=== PATIENT | female | born 2000 | race Asian ===

== ENCOUNTER 2024-11-01 13:51 | Emergency (ER) | payer OTHER, SELFPAY ==
[2024-11-01] VITALS (11 sets, daily range): BP systolic 114–148; BP diastolic 61–85; PULSE 61–78; RESP 16–25; TEMP 36.8; O2SAT 97–99; BMI 34.3
--- NOTE | 2024-11-01 14:13 | DI.RAD.S_ITS ---
PROCEDURE: XR CHEST 1V INDICATIONS: chest pain TECHNIQUE: One view of the chest was acquired. COMPARISON: None. FINDINGS: Surgical changes and devices: None. Lungs and pleura: Lungs are clear. No pleural effusions or pneumothorax. Mediastinum: Mediastinal contours appear normal. Heart size is normal. Bones and chest wall: No suspicious bony lesions. Overlying soft tissues appear unremarkable. IMPRESSION: No acute cardiopulmonary abnormality is seen. Dictated by: Lamberto Camargo M.D. on 11/01/2024 at 15:12 Approved by: Lamberto Camargo M.D. on 11/01/2024 at 15:14
--- NOTE | 2024-11-01 14:13 | EKG_ITS ---
[place] [id number] [place] [id number] Test Date: 2024-11-01 Pat Name: Olivia Cardoso Department: [facility] Room: Gender: Female Sack Filler: JOSE : 2000 Requested By: Order Number: [id number] Reading MD: Elver Jordan MD Measurements Intervals [place] Rate: 62 P: 41 ID: [id number] QRS: 53 QRSD: 86 T: 6 QT: 412 QTc: 418 Interpretive Statements Normal sinus rhythm Electronically Signed On 11-02-2024 6:56:35 PST by Elver Jordan MD
[2024-11-01 14:32] LABS: Add Manual Diff / Slide Review NO; Basophils Absolute Auto 0 /uL (0-100); Basophils Percent Auto 0.8 % (0-2); Eosinophils Absolute Auto 100 /uL (0-450); Eosinophils Percent Auto 1.7 % (2-4); Hematocrit 40.2 % (36-46); Hemoglobin 13.8 g/dL (12.0-16.0); Lymphocytes Absolute Auto 2100 /uL (1100-4500); Mean Corpuscular HGB Conc 34.4 % (30-36); Mean Corpuscular Volume 87.2 fL (80-100); Monocytes Absolute Auto 400 /uL (0-900); Monocytes Percent Auto 7.2 % (3-14); Neutrophils Absolute Auto 3400 /uL (1500-7000); Neutrophils Percent Auto 55.3 % (50-75); Platelet Count 335 X10^3/uL (150-400); Red Blood Cell Count 4.62 X10^6/uL (4.0-5.2); Red Cell Distribution Width 12.9 % (11.6-14.8); White Blood Cell Count 6.1 X10^3/uL (4.5-11.0)
[2024-11-01 14:43] LABS: INR 1.1 (0.9-1.3)
[2024-11-01 14:46] LABS: PTT Partial Thromboplastin Tim 31 SECONDS (25.1-36.5)
[2024-11-01 14:50] LABS: Alanine Aminotransferase 35 IU/L (<35); Albumin 4.8 g/dL (3.5-5.0); Albumin Globulin Ratio 1.8 (1.0-2.8); Alkaline Phosphatase 53 U/L (38-126); Aspartate Aminotransferase 39 IU/L (14-36); BUN Creatinine Ratio 14.7 (6-22); Bilirubin Total 0.3 mg/dL (0.2-1.3); Blood Urea Nitrogen 11 mg/dL (7-17); Calcium 9.4 mg/dL (8.4-10.2); Carbon Dioxide 24 mmol/L (22-32); Chloride 102 mmol/L (98-107); Creatine Kinase 147 U/L (30-135); Estimated Glomerular Filt Rate > 60 mL/min (>60); Globulin 2.7 g/dL (1.7-4.1); Glucose 151 mg/dL (70-100); HEMOLYSIS < 15 (0-50); Lipase 106 U/L (23-300); Magnesium 1.7 mg/dL (1.6-2.3); Potassium 3.9 mmol/L (3.4-5.1); Sodium 137 mmol/L (137-145); Total Protein 7.5 g/dL (6.3-8.2)
[2024-11-01 15:01] LABS: NT-proBNP (BNP-Adult 18+) 35 pg/mL (<125); Troponin I < 0.012 ng/mL (0.01-0.034)
--- NOTE | 2024-11-01 15:57 | PC.NURSE ---
during conversation with this RN about what happened today patient estimated that she has had similar events Less than 6 times in the past 3 months. Patient states that they have been sitting at their desk or laying down in previous episodes. Patient states that it has been happening for several years. Provider notified.
--- NOTE | 2024-11-01 16:19 | ED_ITS ---
HPI - Syncope General Chief Complaint: Syncope Stated Complaint: GLF ,Dizzyness, Blurred Vision Time Seen by Provider: 11/01/24 16:09 History of Present Illness HPI narrative: Patient here for syncopal episode at work. Patient works here. Patient has had 3-5 episodes in the past 5 months, she states mostly at work. She states she has been under lot of stress. She will have visual disturbance in the peripheral santana and her vision will go black and she will pass out for less than 3 seconds. No history of seizures. No incontinence. No confusion afterwards. She states her stress has been related to work. No personal or family history of arrhythmia blood clots in legs or lungs heart attacks or seizures. Patient denies any pre event headache chest pain back pain abdominal pain sweating nausea numbness tingling or weakness. Does get dizzy prior to passing out. Denies any recent illness. No black or bloody stools. No fluid loss. Denies . Related Data Allergies Allergy/AdvReac Type Severity Reaction Status Date / Time No Known Drug Allergies Allergy Verified 11/01/24 14:12 Review of Systems Review of Systems Narrative: GENERAL: Negative chills, fatigue, malaise, fever, sweats. HEENT: Negative sinus pain, ear pain, sore throat RESPIRATORY: Negative dyspnea, cough CARDIOVASCULAR: Negative chest pain, palpitations, positive syncope GASTROINTESTINAL: Negative nausea, vomiting, abdominal pain : Negative dysuria, frequency, hematuria MUSCULOSKELETAL: Negative muscle or bony pain SKIN: Negative rash, skin lesions NEUROLOGIC: Negative weakness, numbness ROS Unobtainable: All systems reviewed & are unremarkable except as noted in HPI and below Exam Narrative Exam Narrative: GENERAL: in no distress, not toxic not dyspneic HEAD: Normocephalic. Atraumatic. Nontender scalp and face. No skin injury. No facial injury. EYES: Pupils equal round ENT: Mucous membranes moist. NECK: Trachea midline. No midline tenderness or step-off of the cervical spine. CARDIOVASCULAR: Regular rate and rhythm RESPIRATORY: Clear to auscultation. Breath sounds equal bilaterally. No wheezes, rales, or rhonchi. GASTROINTESTINAL: Abdomen soft, non-tender EXTREMITIES: No gross deformities. Examination left knee small amount of erythema to the patella but full active range of motion. No bruising at this time. Nontender knee. BACK: No flank tenderness. NEURO: AOx4. Clear speech no facial droop light touch intact bilateral face and hands with strong equal plastics worker. SKIN: Warm and dry PSYCH: Not anxious, is cooperative Initial Vital Signs Initial Vital Signs: Vital Signs Temperature 98.3 F 11/01/24 14:08 Pulse Rate 61 11/01/24 14:08 Respiratory Rate 16 11/01/24 14:08 Blood Pressure 148/85 H 11/01/24 14:08 Pulse Oximetry 99 11/01/24 14:08 Oxygen Delivery Method Room Air 11/01/24 14:08 Course Orders Ordered: ED Orders 11/01/24 14:10 Complete Blood Count AUTO DIFF Stat Comprehensive Metabolic Panel Stat Lipase Stat Magnesium Stat NT-proBNP (BNP-Adult 18+) Stat PTT Partial Thromboplastin Busetr Stat Prothrombin Time INR Stat Troponin & CK Cardiac Panel Stat 11/01/24 14:13 XR chest 1V Stat EKG-12 Lead Stat Vital Signs Vital signs: Vital Signs - 8 hr 11/01/24 14:08 11/01/24 15:17 11/01/24 15:18 Temperature 98.3 F Pulse Rate 61 78 78 Respiratory Rate 16 Blood Pressure 148/85 H Pulse Oximetry 99 98 99 Oxygen Delivery Method Room Air 11/01/24 15:18 11/01/24 15:20 11/01/24 15:20 Temperature Pulse Rate 72 Respiratory Rate 23 Blood Pressure 146/71 H 131/64 Pulse Oximetry 99 Oxygen Delivery Method 11/01/24 15:30 11/01/24 15:30 11/01/24 15:40 Temperature Pulse Rate 67 Respiratory Rate 21 Blood Pressure 143/63 H 131/61 Pulse Oximetry 99 Oxygen Delivery Method 11/01/24 15:40 11/01/24 15:50 11/01/24 15:50 Temperature Pulse Rate 72 68 Respiratory Rate 18 22 Blood Pressure 114/70 Pulse Oximetry 98 98 Oxygen Delivery Method MDM - Syncope Lab Data 11/01/24 14:10 11/01/24 14:10 Labs: Lab Results 11/01/24 Range/Units 14:10 WBC 6.1 (4.5-11.0) X10^3/uL RBC 4.62 (4.0-5.2) X10^6/uL Hgb 13.8 (12.0-16.0) g/dL Hct 40.2 (36-46) % MCV 87.2 (80-100) fL MCH 30.0 (26-34) PG MCHC 34.4 (30-36) % RDW 12.9 (11.6-14.8) % Plt Count 335 (150-400) X10^3/uL Neut % (Auto) 55.3 (50-75) % Lymph % (Auto) 35.0 (25-40) % [place] % (Auto) 7.2 (3-14) % Eos % (Auto) 1.7 L (2-4) % Baso % (Auto) 0.8 (0-2) % Neut # (Auto) 3400 (6240-9898) /uL Lymph # (Auto) 2100 (2094-7300) /uL [place] # (Auto) 400 (0-900) /uL Eos # (Auto) 100 (0-450) /uL Baso # (Auto) 0 (0-100) /uL PT 12.0 (9.4-12.5) SECONDS INR 1.1 (0.9-1.3) APTT 31 (25.1-36.5) SECONDS Sodium 137 (137-145) mmol/L Potassium 3.9 (3.4-5.1) mmol/L Chloride 102 (98-107) mmol/L Carbon Dioxide 24 (22-32) mmol/L BUN 11 (7-17) mg/dL Creatinine 0.75 (0.52-1.04) mg/dL Estimated GFR > 60 (>60) mL/min BUN/Creatinine Ratio 14.7 (6-22) Glucose 151 H (70-100) mg/dL Calcium 9.4 (8.4-10.2) mg/dL Magnesium 1.7 (1.6-2.3) mg/dL Total Bilirubin 0.3 (0.2-1.3) mg/dL AST 39 H (14-36) IU/L ALT 35 H (<35) IU/L Alkaline Phosphatase 53 (38-126) U/L Total Creatine Kinase 147 H (30-135) U/L Troponin I < 0.012 (0.01-0.034) ng/mL NT-Pro-B Natriuret Pep 35 (<125) pg/mL Total Protein 7.5 (6.3-8.2) g/dL Albumin 4.8 (3.5-5.0) g/dL Globulin 2.7 (1.7-4.1) g/dL Albumin/Globulin Ratio 1.8 (1.0-2.8) Lipase 106 (23-300) U/L Serum , Qual Negative (Negative) Imaging Data Chest x-ray: Radiologist's Impression: [address] [address] XRay Report Signed Patient: Olivia Cardoso MR#: [id number] : 2000 Acct:[id number] Age/Sex: 24 / F Date of Service: 11/01/24 Loc: ED Accession Number: [id number] Procedure: XR chest 1V Ordering Provider: Chandler Nickerson MD PROCEDURE: XR CHEST 1V INDICATIONS: chest pain TECHNIQUE: One view of the chest was acquired. COMPARISON: None. FINDINGS: Surgical changes and devices: None. Lungs and pleura: Lungs are clear. No pleural effusions or pneumothorax. Mediastinum: Mediastinal contours appear normal. Heart size is normal. Bones and chest wall: No suspicious bony lesions. Overlying soft tissues appear unremarkable. IMPRESSION: No acute cardiopulmonary abnormality is seen. Dictated by: Lamberto Camargo M.D. on 11/01/2024 at 15:12 Approved by: Lamberto Camargo M.D. on 11/01/2024 at 15:14 [facility] Narrative Medical decision making narrative: Patient here for syncopal episode at work. Patient works here. Patient has had 3-5 episodes in the past 5 months, she states mostly at work. She states she has been under lot of stress. She will have visual disturbance in the peripheral santana and her vision will go black and she will pass out for less than 3 seconds. No history of seizures. No incontinence. No confusion afterwards. She states her stress has been related to work. No personal or family history of arrhythmia blood clots in legs or lungs heart attacks or seizures. Patient denies any pre event headache chest pain back pain abdominal pain sweating nausea numbness tingling or weakness. Does get dizzy prior to passing out. Denies any recent illness. No black or bloody stools. No fluid loss. Denies . Today she was walking down the hallway back to her office and she felt her vision closing in and her vision went black and she fell forward landing on her left knee. Denies hitting her head. Coworkers helped her up and walked her down to the emergency department. After history and exam CBC CMP troponin EKG chest x-ray, no imaging of the knee indicated. Left knee has full active range of motion. No knee pain at this time. [facility] Medical records reviewed: No recent visit for this complaint Differential considered: Includes but not limited to arrhythmia vasovagal syncope anxiety stress seizure pulmonary embolism dehydration Lab Test results independently reviewed as above. Pertinent findings: WBC 6.1 hemoglobin 13.8 INR 1.1 sodium 137 potassium 3.9 GFR greater than 60 glucose 151 AST 39 ALT 35 troponin less than 0.012 Independently reviewed EKG EKG normal EKG normal sinus rhythm rate 62 Imaging studies independently reviewed: Chest x-ray negative Consultations: None indicated Treatments: None indicated at this time. Re-evaluations: 4:24 p.m.. Reviewed results and exam with patient. At this time exam and laboratory studies are reassuring. Differential diagnosis reviewed with her and at this time she feels like is a lot of stress as causing her symptoms. She will call for a primary care through her insurance. She will need referral for outpatient echocardiogram and Holter monitoring. No new medications are indicated at this time. She desires discharge home. L and I forms were completed. Discussion: Appropriate for discharge home. Exam is reassuring laboratory studies reassuring. Low risk for pulmonary embolism no chest pain no shortness of breath. Has had multiple episodes in the past few months. Appropriate for outpatient workup including but not limited to echocardiogram Holter monitor. Work note provided for patient as patient is anxiety and syncopal episode appear to be related to stress at work. She would benefit for a couple of days off Diagnosis: Syncope Discharge Plan Departure Patient Disposition: Home Clinical Impression: Syncope and collapse Instructions: DI for Syncope in Adults (Fainting) Activity Restrictions/Additional Instructions: Your exam and laboratory studies are reassuring. There are many different reasons for passing out. However no driving operating machinery until you have been seen by primary care for further evaluation. You will need outpatient Holter monitoring and echocardiogram. Return if worse if any questions or concerns. Stand Alone Forms: Patient Portal/API/Survey, Work Release Note
[2024-11-01 16:43] LABS: Pregnancy Test Serum,Qual Negative (Negative)
== END 2024-11-01 16:39 | disposition home or self-care (01) ==
PROVIDERS: Emergency Provider Emergency Medicine
DX: R55 Syncope and collapse (principal); F43.9 Reaction to severe stress, unspecified; Y99.0 Civilian activity done for income or pay
CPT/HCPCS: 36415; 71045; 80053; 82550; 83690; 83735; 83880; 84484; 84703; 85025; 85610; 85730; 93005; 93010; 99283; 99284

== ENCOUNTER → 2024-11-03 13:43 | Outpatient (CLI) | payer OTHER, SELFPAY ==
[2024-11-03 14:09] LABS: Appearance Urine UA SL CLOUDY; Bilirubin Urine UA NEGATIVE (NEGATIVE); Color Urine UA YELLOW; Glucose Urine UA NEGATIVE (Negative); Ketones Urine UA NEGATIVE (NEGATIVE); Leukocyte Esterase Urine UA 3+ (NEGATIVE); Nitrite Urine UA NEGATIVE (Negative); Occult Blood Urine UA 1+ (Negative); Protein Urine UA NEGATIVE (Negative); Specific Gravity Urine UA <=1.005 (1.000-1.035); Urobilinogen Urine UA 0.2 E.U./dL (0.2)
[2024-11-03 14:25] LABS: Bacteria Urine Moderate (10-30); Culture Indicated Urine Specimen Cultured; RBC Urine 1-5/HPF (0-5/HPF); Squamous Epithelial Cell Urine 1-5 /HPF (0-5/HPF); Urine Volume 10mL (spun); WBC Urine 10-30/HPF (0-5/HPF)
[2024-11-03 14:35] LABS: Hemoglobin A1C% w Est Avg Glu 5.2 % (4.0-6.0)
[2024-11-03 15:07] LABS: TSH w/ Reflex to FT4 0.16 uIU/mL (0.47-4.68)
[2024-11-03 15:36] LABS: Free T4, Direct Thyroxine 1.62 ng/dL (0.78-2.19)
== END ==
LOC: LAB 13:47
PROVIDERS: PCP Nurse Practitioner Family; Referring Provider Nurse Practitioner Family; Visit Provider Nurse Practitioner Family
DX: R55 Syncope and collapse (principal); R35.0 Frequency of micturition; R30.0 Dysuria
CPT/HCPCS: 36415; 81003; 81015; 83036; 84439; 84443; 87086

== ENCOUNTER → 2024-12-15 16:40 | Outpatient (CLI) | payer OTHER, SELFPAY ==
[2024-12-15 18:47] LABS: TSH w/ Reflex to FT4 2.88 uIU/mL (0.47-4.68)
== END ==
LOC: LAB 16:40
PROVIDERS: PCP Nurse Practitioner Family; Referring Provider Nurse Practitioner Family; Visit Provider Nurse Practitioner Family
DX: E03.9 Hypothyroidism, unspecified (principal)
CPT/HCPCS: 36415; 84443

== ENCOUNTER → 2025-09-24 15:30 | Outpatient (CLI) | payer OTHER, SELFPAY ==
[2025-09-24 18:32] LABS: TSH w/ Reflex to FT4 3.19 uIU/mL (0.47-4.68)
== END ==
PROVIDERS: PCP Nurse Practitioner Family; Referring Provider Nurse Practitioner Family; Visit Provider Nurse Practitioner Family
DX: E03.9 Hypothyroidism, unspecified (principal)
CPT/HCPCS: 36415; 84443

== ENCOUNTER 2025-10-22 19:34 | Emergency (ER) | payer OTHER, SELFPAY ==
--- OUTSIDE RECORDS SUMMARY | 2025-10-22 19:42 | XMS_ITS | Clinical Summary ---
Author Organization [facility] Address [address] [place] [address] Care Team Providers Care Account Development Executive Name Role Phone JayreneeClaire melara Primary Care Provider Mary [email or web address] Source Comments NOTE: The information displayed by Care Everywhere is extracted from the complete medical record and may not identify all current or past patient conditions.[facility] Immunizations Immunization Administration Dates Next Due HPV, Quadrivalent (GARDASIL 4) 08/07/2011,2010,02/04/2011 Meningococcal Polysaccharide Vaccine (MENOMUNE) 02/04/2011 Tdap (Tetanus, Diphtheria, a cellular Pertussis) 02/04/2011 Social History Tobacco Use Types Packs/Day Years Used Date Smoking Tobacco: Never Assessed Comments Unknown Sex and Gender Information Value Date Recorded Sex Assigned at Not on file Legal Sex Female 8:13 AM PST Gender Identity Not on file Sexual Orientation Not on file Plan of Treatment Health Maintenance Due Date Last Done Comments Discuss 1X Lifetime Syphilis Screening 2000 Blood Pressure Check 2000 Adult HIV Screen (1-time) 01/30/2015 Hep C Screening (1-time) 01/30/2018 Cervical Cancer Screening: Pap 01/30/2021 FLU VACCINE (#1) 06/25/2025 09/07/2023, , 08/10/2020, Additional history exists Vaccine: COVID-19 ( season) 2025 09/07/2023, 08/21/2021 Vaccine: [id number] (8 - T d or Tdap) 03/30/2032 03/30/2022, 02/04/2011, 02/06/2004, Additional history exists Vaccine: HPV Completed 08/07/2011, 06/2011, 02/04/2011 Insurance * Guarantor: Olivia Cardoso Account Type Relation to Patient Date of Phone Billing Address Personal/Family Self 2000 [address] [place] [address] [facility] Care Teams Account Development Executive Relationship Specialty Start Date End Date Claire Shafer [facility] [address] [address] PCP - General 04/03/25
[2025-10-22 19:49] VITALS: BP 131/73; PULSE 68; RESP 18; TEMP 36.6; O2SAT 99; BMI 32.3
--- NOTE | 2025-10-22 23:27 | ED_ITS ---
HPI - Wound/Laceration General Chief Complaint: Wound/Laceration Stated Complaint: Lt hand laceration Time Seen by Provider: 10/22/25 20:18 Source: patient Mode of arrival: Ambulatory History of Present Illness HPI narrative: 25-year-old female with chart history of PTSD, ADHD, major depressive disorder, was trying to catch a falling kitchen knife 6:30 p.m., sustaining laceration to left hand between 4th and 5th digit webspace, no other injuries recalled. She has not take blood thinner medications. No numbness or tingling. No numbness or tingling to affected fingers. Unclear date of last tetanus. Related Data Previous Rx's ?Medication ?Instructions ?Recorded levothyroxine 100 mcg tablet 100 mcg PO DAILY #90 tabs 08/03/25 lisdexamfetamine 20 mg capsule 20 mg PO DAILY #28 caps 09/05/25 Allergies Allergy/AdvReac Type Severity Reaction Status Date / Time No Known Drug Allergies Allergy Verified 07/13/25 12:44 Patient History Medical History (Updated 10/23/25 @ 00:48 by Ralph Enrique MD) Presence of Kyleena IUD Dysmenorrhea ADHD PTSD (post-traumatic stress disorder) MDD (major depressive disorder) Hypothyroidism Exam Narrative Exam Narrative: GENERAL: Well-developed patient, in mild distress. HEAD: Atraumatic. Normocephalic. EYES: Pupils equal round and reactive. Extraocular motions intact. No scleral icterus. No injection or drainage. ENT: Nose without bleeding, purulent drainage. Throat without erythema, tonsillar hypertrophy or exudate. Airway patent. NECK: Trachea midline. Non tender CARDIOVASCULAR: Regular rate and rhythm without murmurs, gallops, or rubs. RESPIRATORY: Clear to auscultation. Breath sounds equal bilaterally. No wheezes, rales, or rhonchi. GASTROINTESTINAL: Abdomen soft, non-tender, nondistended. EXTREMITIES: No edema or joint tenderness. BACK: Nontender without deformity or crepitance. No flank tenderness. NEURO: AOx3. Motor functions grossly nonfocal. SKIN: No rash or erythema of visible areas Initial Vital Signs Initial Vital Signs: Vital Signs Temperature 98 F 10/22/25 19:49 Pulse Rate 68 10/22/25 19:49 Respiratory Rate 18 10/22/25 19:49 Blood Pressure 131/73 10/22/25 19:49 Pulse Oximetry 99 12/29/25 19:49 Oxygen Delivery Method Room Air 10/22/25 19:49 Procedures Laceration Repair Laceration 1: Time of procedure: 01:00 Site: hand (Left hand 4th webspace between 4th and 5th fingers) Side (If applicable): left Size (cm): 1 Description: linear Depth: simple, single layer Local Anesthetic: lidocaine 1% Amount of anesthesia used (mL): 2 Skin layer closed with: nylon Skin layer suture size: 5-0 Number of sutures: 3 Technique: simple, interrupted Course Orders Ordered: Discontinued Medications Bacitracin (Bacitracin Oint 0.9 Gm Pckt) 1 applic TOP NOW ONE Stop: 10/23/25 00:47 Last Admin: 10/23/25 00:56 Dose: 1 applic Documented By: MARY JANE Diphtheria/Tetanus/Acell Pertussis (Tet,Diph,Pertuss(Acell),Vac/Pf 0.5 Ml Syringe) 0.5 ml IM .ONCE ONE Stop: 10/23/25 00:47 Last Admin: 10/23/25 00:55 Dose: 0.5 ml Documented By: MARY JANE Lidocaine HCl (Lidocaine 1% (Pf) 5 Ml) 5 ml INJ NOW ONE Stop: 10/22/25 23:35 Last Admin: 10/22/25 23:39 Dose: 5 ml Documented By: LUCY Midazolam HCl (Midazolam 5 Mg/Ml Vial) 5 mg IM NOW ONE Stop: 10/23/25 00:07 Last Admin: 10/23/25 00:21 Dose: 5 mg Documented By: LUCY Vital Signs Vital signs: Vital Signs - 8 hr 10/22/25 23:32 10/23/25 00:15 10/23/25 00:18 Pulse Rate 75 83 82 Respiratory Rate 16 Blood Pressure 122/60 Pulse Oximetry 100 100 100 Oxygen Delivery Method Room Air 10/23/25 00:18 10/23/25 00:30 10/23/25 00:30 Pulse Rate 76 Respiratory Rate Blood Pressure 135/83 125/75 Pulse Oximetry 99 Oxygen Delivery Method 10/23/25 01:00 10/23/25 01:00 Pulse Rate 75 Respiratory Rate Blood Pressure 119/60 Pulse Oximetry 99 Oxygen Delivery Method Room Air MDM - Wound/Laceration MDM Narrative Medical decision making narrative: 25-year-old female sustained laceration between 4th and 5th fingers webspace trying to catch a falling kitchen knife this afternoon. We discussed primary closure, she became very very anxious, started hyperventilating, was amenable to medications to help control anxiety/panic before attempted suturing, IM Versed given. Symptoms improved. Primary closure with single stitches, see separate procedure note. Dressing applied. Tdap tetanus updated. Wound check advised with PCP in 2 days. Discharged home with family. Discharge Plan Departure Patient Disposition: Home Clinical Impression: Hand laceration Activity Restrictions/Additional Instructions: Hand laceration trying to catch a falling kitchen knife. Laceration about 1 cm in length with some gaping in the webspace between the left 4th and 5th fingers. You felt initially quite panicked and anxious, intramuscular dose of midazolam/ Versed was given, with good effect. You were able to proceed with primary closure of the wound thereafter. Sutures were placed after local numbing. Tetanus shot update was given. Antibiotic ointment applied, with a sterile dressing. Wound check advised with the regular doctor in the next couple of days. Suture removal likely 7-10 days. Consider keeping the wound clean for the 1st couple of days, and dry with dressing placed here in the emergency department, then dressing changes, can wash hands likely later this week, but no submersion in water until post suture removal complete healing. Return earlier if any change worsening symptoms or any concerns prior. Prescriptions: No Action levothyroxine 100 mcg tablet 100 mcg PO DAILY Qty: 90 0RF lisdexamfetamine 20 mg capsule 20 mg PO DAILY Qty: 28 0RF Referrals: Claire Shafer FNP-BC [Primary Care Provider, Family Practice] Stand Alone Forms: Patient Portal/API, Work Release Note
[2025-10-22 23:32] VITALS: BP 122/60; PULSE 75; RESP 16; O2SAT 100
[2025-10-22] MEDS: LIDOCAINE 1% (PF) 5 ML INJ (23:39)
[2025-10-23 00:15] VITALS: PULSE 83; O2SAT 100
[2025-10-23 00:18] VITALS: BP 135/83; PULSE 82; O2SAT 100
[2025-10-23] MEDS: MIDAZOLAM 5 MG/ML VIAL IM (00:21)
[2025-10-23 00:30] VITALS: BP 125/75; PULSE 76; O2SAT 99
[2025-10-23] MEDS: TET,DIPH,PERTUSS(ACELL),VAC/PF 0.5 ML SYRINGE IM (00:55)
[2025-10-23] MEDS: BACITRACIN OINT 0.9 GM PCKT 1 APPLIC TOP (00:56)
[2025-10-23 01:00] VITALS: BP 119/60; PULSE 75; O2SAT 99
== END 2025-10-23 01:22 | disposition home or self-care (01) ==
PROVIDERS: Emergency Provider Emergency Medicine; PCP Nurse Practitioner Family
DX: S61.217A Laceration without foreign body of left little finger without damage to nail, initial encounter (principal); S61.215A Laceration without foreign body of left ring finger without damage to nail, initial encounter; Z23 Encounter for immunization; W26.0XXA Contact with knife, initial encounter
CPT/HCPCS: 12001; 96372; 99284; 90715; J2250